=== PATIENT | female | born 1965 | race African-American/Black ===

== ENCOUNTER 2023-09-20 08:38 | Inpatient (IN) | payer MEDICAID ==
[~2023-09-20] VITALS: Ht 175.3 cm; Wt 82.1 kg
[2023-09-20 09:18] LABS: ALANINE AMINOTRANSFERASE 24 IU/L (10-49); ALBUMIN 3.4 g/dL (3.2-4.8); ASPARTATE AMINOTRANSFERASE 47 IU/L (<34); BILIRUBIN TOTAL 0.8 mg/dL (0.1-1.0); CARBON DIOXIDE 31 mEq/L (21-32); CHLORIDE 107 mEq/L (98-107); CREATININE 0.9 mg/dL (0.6-1.0); GLUCOSE 98 mg/dL (70-105); POTASSIUM 3.6 mEq/L (3.5-5.1); SODIUM 139 mEq/L (136-145); UREA NITROGEN BLOOD 13 mg/dL (9-23)
[2023-09-20 09:24] LABS: BASOPHILS % 0.7 % (0.0-2.0); DIFFERENTIAL COMMENT 0; EOSINOPHILS % 2.3 % (0.0-5.0); HEMATOCRIT. 40.2 % (36.0-48.0); HEMOGLOBIN. 13.8 g/dL (12.0-16.0); LYMPHOCYTES % 40.5 % (20.0-50.0); MEAN CORPUSCULAR HGB CONC 34.5 g/dL (31.0-37.0); MEAN CORPUSCULAR VOLUME 101.5 fL (81.0-99.0); MEAN PLATELET VOLUME 8.2 fl (7.4-10.4); MONOCYTES % 6.2 % (2.0-8.0); NEUTROPHILS % 50.3 % (40.0-76.0); PLATELET 189 x1000/uL (130-400); RED BLOOD CELL COUNT 3.96 mill/uL (4.2-5.4); RED CELL DISTRIBUTION WIDTH 15.2 % (11.6-14.6); WHITE BLOOD COUNT 9.6 x1000/uL (4.5-11.0)
[2023-09-20] MEDS: MORPHINE SULFATE 4 MG/ML CPJ (NOT FOR IM USE) IV STA (10:08)
[2023-09-20] MEDS: KETOROLAC 30MG/ML VIAL IV STA (10:09)
[2023-09-20] MEDS ORDERED: ONDANSETRON HCL 4MG/2ML INJ IV PRN (16:00)
[2023-09-20] MEDS ORDERED: ACETAMINOPHEN 325MG TABLET PO PRN (16:00)
[2023-09-20] MEDS ORDERED: NALOXONE HCL 0.4MG/ML VIAL IV PRN (16:00)
[2023-09-20] MEDS ORDERED: CLONIDINE 0.1MG TABLET PO PRN (16:00)
[2023-09-20 17:30] VITALS: BP 120/60; PULSE 75; RESP 18; TEMP 98.6
[2023-09-20 20:00] VITALS: BP 115/67; PULSE 61; RESP 18; TEMP 97.5
[2023-09-20] MEDS: MORPHINE SULFATE 2 MG/ML CPJ (NOT FOR IM USE) IV PRN (20:32)
[2023-09-20] MEDS: ENOXAPARIN 40MG/0.4ML SYR SUBCUT SCH (21:16)
[2023-09-20] MEDS: GABAPENTIN 300MG CAPSULE PO SCH (22:43)
[2023-09-21] VITALS: BP 118/75; PULSE 59; RESP 18; TEMP 97.3
[2023-09-21 06:25] LABS: BASOPHILS % 0.7 % (0.0-2.0); DIFFERENTIAL COMMENT 0; EOSINOPHILS % 3.1 % (0.0-5.0); HEMATOCRIT. 37.6 % (36.0-48.0); LYMPHOCYTES % 53.3 % (20.0-50.0); MEAN CORPUSCULAR HEMOGLOBIN 35.2 pg (28.0-32.0); MEAN CORPUSCULAR HGB CONC 34.7 g/dL (31.0-37.0); MEAN CORPUSCULAR VOLUME 101.5 fL (81.0-99.0); MEAN PLATELET VOLUME 8.5 fl (7.4-10.4); MONOCYTES % 5.4 % (2.0-8.0); NEUTROPHILS % 37.5 % (40.0-76.0); PLATELET 173 x1000/uL (130-400); RED CELL DISTRIBUTION WIDTH 15.2 % (11.6-14.6); WHITE BLOOD COUNT 10.3 x1000/uL (4.5-11.0)
[2023-09-21 06:59] LABS: CALCIUM 8.9 mg/dL (8.7-10.4); CARBON DIOXIDE 30 mEq/L (21-32); CHLORIDE 103 mEq/L (98-107); CREATININE 0.9 mg/dL (0.6-1.0); GLUCOSE 79 mg/dL (70-105); POTASSIUM 4.5 mEq/L (3.5-5.1); SODIUM 138 mEq/L (136-145); UREA NITROGEN BLOOD 14 mg/dL (9-23)
[2023-09-21 07:49] LABS: *AMPHETAMINES SCREEN URINE NEGATIVE (NEGATIVE); *BARBITURATES SCREEN URINE NEGATIVE (NEGATIVE); *BENZODIAZEPINES SCREEN URINE NEGATIVE (NEGATIVE); *COCAINE SCREEN URINE NEGATIVE (NEGATIVE); CANNABINOID URINE SCREEN PRESUMPTIVE POSITIVE (NEGATIVE); ECSTASY MDMA SCREEN URINE NEGATIVE (NEGATIVE); METHADONE URINE SCREEN Neg (NEGATIVE); OPIATES URINE SCREEN PRESUMPTIVE POSITIVE (NEGATIVE); PHENCYCLIDINE URINE SCREEN NEGATIVE (NEGATIVE)
[2023-09-21 08:00] VITALS: BP 147/97; PULSE 71; RESP 20; TEMP 97.3
[2023-09-21 12:00] VITALS: BP 100/52; PULSE 66; RESP 20; TEMP 97.5
[2023-09-21] MEDS: HYDROCODONE/ACETAMINOPHEN 5/325MG TABLET PO PRN (19:00)
[2023-09-21 20:00] VITALS: BP 103/61; PULSE 65; RESP 16; TEMP 97.1
[2023-09-22 04:00] VITALS: BP 105/62; PULSE 66; RESP 16; TEMP 97.6
[2023-09-22 08:00] VITALS: BP 142/86; PULSE 67; RESP 20; TEMP 98
[2023-09-22] MEDS: DEXAMETHASONE 4MG/ML 1ML VIAL IV SCH (12:00)
[2023-09-22 14:32] VITALS: BP 142/86; PULSE 65; TEMP 98.9; O2SAT 99
[2023-09-22 16:00] VITALS: BP 142/83; PULSE 56; RESP 20; TEMP 97.3
[2023-09-22] MEDS ORDERED: HYDR-4001 MT (17:19)
== END 2023-09-22 18:49 | disposition home or self-care (01) | DRG 347 ==
LOC: ER 08:38 → 6WST 10:04 → EDBEDREQ 10:09
PROVIDERS: ADMIT Internal Medicine; ATTEND Internal Medicine
DX: M48.061 Spinal stenosis, lumbar region without neurogenic claudication (principal); G89.29 Other chronic pain; I10 Essential (primary) hypertension; R26.9 Unspecified abnormalities of gait and mobility; M47.26 Other spondylosis with radiculopathy, lumbar region; M54.32 Sciatica, left side; Z79.899 Other long term (current) drug therapy
CPT/HCPCS: 36415; 72148; 80048; 80053; 80305; 85025; 99285; J1100; J1650; J1885; J2270